=== PATIENT | female | born 1985 | race Caucasian/White ===

== ENCOUNTER → 2016-09-21 | Day surgery (SDC) | payer OTHER ==
[2016-09-16 14:08] VITALS: Ht 172.7 cm; Wt 62.3 kg
--- NOTE | 2016-09-20 14:33 | HISTORY & PHYSICAL EXAMINATION ---
DATE OF ADMISSION: 09/21/2016 HISTORY OF PRESENT ILLNESS: A 30-year-old female presents for initial preoperative evaluation, requesting surgery to painful right foot. Pain is located in the bunion deformity surrounding the first metatarsophalangeal joint. Severity of the condition is graded as a 6-7 on a 10 point scale depending on the activity. She notes intermittent pain and aching. It is not a constant ache however when it is symptomatic is quite inhibitory of exercise routine and working out. She is unsure exactly when this started, it has been going on for several years; however, progressively become much worse to the point where she is requesting surgical intervention due to pain. She denies any associated signs and symptoms. She has tried accommodative padding, accommodative shoes, orthotics, palliative debridements, [id number] medications with little relief. Due to the nature and severity of the discomfort, she is requesting surgical intervention. PAST SURGICAL HISTORY: No previous surgeries. PAST MEDICAL HISTORY: Unremarkable. MEDICATIONS: control pills, Clinoril, spironolactone. ALLERGIES: No known medical allergies. FAMILY HISTORY: Unremarkable. SOCIAL HISTORY: The patient denies smoking, alcohol use, illicit drug use, and STDs. REVIEW OF SYSTEMS: Unremarkable except chief complaint. PHYSICAL EXAMINATION: CONSTITUTIONAL: The patient appears well-developed and nourished with good attention to body grooming and habitus. HEAD AND FACE: Head is normocephalic and atraumatic without any gross head, face, or neck masses. EYES: Conjunctival and pupillary reaction to light and accommodation are normal. EARS, NOSE, MOUTH, AND THROAT: Unremarkable. NECK: Neck is supple. Trachea is midline without any adenopathy or crepitance palpable. CARDIOVASCULAR EXAMINATION: Normal S1, S2 without murmur, gallops, rubs, or clicks noted. Cardiovascular exam is normal. RESPIRATORY: Chest is symmetric. No scars are visible. No port or pacemaker. LUNGS: Clear to auscultation bilaterally. GASTROINTESTINAL EXAMINATION: Abdominal organs, bladder, and kidneys show no abnormalities, masses, tenderness, or rigidity. LYMPHATIC EXAMINATION: No popliteal, inguinal, or supraclavicular lymphadenopathy noted. LOWER EXTREMITY: DP palpable, PT palpable. Digital hair is present. DERMATOLOGIC: Right second intermetatarsal space shows a tattoo. Inspection interphalangeal joint shows redness bursal projection over bony prominence and callus formation. NEUROLOGICAL: Lower extremity exam touch pinprick sensations are normal. Epicritic sensation over the dorsal medial cutaneous nerve diminished bilaterally. Deep tendon reflexes normal. MUSCULOSKELETAL: Muscle tone is normal. Muscle strength 5/5 all groups tested. First metatarsophalangeal joint shows evidence of an enlarged dorsomedial eminence bilaterally and track range of motion bilaterally, proximal interphalangeal contractures noted 2 through 5 bilaterally. IMPRESSION: 1. Hallux deformity bilaterally. 2. Hammertoes 2 through 5 bilaterally. 3. 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 PLAN: I discussed congenital mechanical etiology of the patient's deformity. Bunion deformity can produce a visible bump which reflect changes of the joint. Conservative treatment consists of extra depth shoes, accommodative padding, palliative debridement, steroid injection, nonsteroidals, orthotics without progression of the deformity, nonsteroidals, orthotics without gross deformity. Surgical procedures to be performed: Modified Mesa distal plantar flexion metatarsal osteotomy, possible Arnaud right. This will be performed under general anesthesia as an outpatient at surgery center. Procedure, risks and complications were fully reviewed with the patient. Consent form, foot diagram and illustration reviewed in all their entirety. All the patient's questions were answered. Complications were discussed in detail with the patient including pain, infection, swelling that may or may not be excessive, pins and needles feeling, numbness, metatarsalgia, excessive bleeding, delay or nonhealing of bone, delay or nonhealing of skin, enlarged scar, failure of the procedure, recurrence or worsening condition which may or may not require further surgery, adverse reaction to anesthesia, allergic reaction to suture or other implant material, loss of toe, foot, or leg, flail toe, stiff toe, short toe, elevated toe, transfer lesion or callus, peripheral neurovascular complications such as phlebitis, damage to nerves or vascular structures, significant chronic pain, chronic nerve pain or damage, and general medical complications. The patient will be required to be in a surgery shoe for a minimum of 8 weeks and not return to dress shoe for 10-12 weeks depending on postop edema. The patient is aware this is an elective type procedure and I recommend a second opinion. The patient stated she understood. Consent form was signed with a copy of the foot diagram and illustration given to the patient. Verbal and written postop instructions were given. The patient will be required to be in a surgery shoe for a minimum of 8 weeks and not return to dress shoe for 10-12 weeks depending on postop edema. The patient will return to the office for postop check or sooner if medically necessary. Instructed to keep dressing clean, dry, and intact until seen at the office.
[~2016-09-21] VITALS: Ht 172.7 cm; Wt 62.3 kg
[~2016-09-21] MED LIST: ATROPINE SULFATE 0.1 MG/ML 5ML SYR IV PRN; BCPILLS PO; BUPIVACAINE 0.5 % 5 MG/1 ML MPF 30ML VIAL ONE; CEFAZOLIN 1000MG/55 ML D5W IV SCH; CLN200 PO; DEXAMETHASONE SOD INJ 4 MG/ML VIAL ONE; EpHEDrine SULFATE INJ 50 MG/ML AMP IV PRN; FENTANYL CITRATE INJ 50 MCG/1 ML 2 ML VIAL IV PRN; FENTANYL CITRATE INJ 50 MCG/1 ML 2 ML VIAL ONE; FLUMAZENIL 0.1 MG/1 ML 10 ML VIAL IV PRN; HYDROmorphone INJ 2 MG/ML SYR/VIAL IV PRN; LABETALOL HCL IV 5 MG/ML 20ML IV PRN; LACTATED RINGER'S 1000ML 1,000 ML IV SCH; LIDOCAINE HCL 1% MPF 2 ML VIAL ONE; LIDOCAINE HCL 2% 2 ML VIAL (20MG/ML) ONE; MEPERIDINE HCL 25 MG/ML CARP IV PRN; MIDAZOLAM HCL 1 MG/ML 2ML VIAL ONE; NALOXONE HCL 0.4 MG/1 ML VIAL/CARP IV PRN; ONDANSETRON INJ 2 MG/ML 2 ML VIAL IV PRN; ONDANSETRON INJ 2 MG/ML 2 ML VIAL ONE; PHENYLEPHRINE 100MCG/ML 5ML SYR IV PRN; PROPOFOL IV EMULSION 10 MG/ML 20 ML VIAL IV ONE; ROPIVACAINE 0.5% 5 MG/ML 30 ML VIAL ONE; SODIUM CHLORIDE 0.9% 1000ML 1,000 ML IV SCH; SPIR100T PO
--- NOTE | 2016-09-21 06:30 | History & Physical Bridge - SC ---
H&P Re-Evaluation Bridge Note: I have examined the patient, reviewed the History & Physical and in the interval since the performance of the History & Physical I have noted the following changes of clinical significance: No changes noted
--- NOTE | 2016-09-21 06:30 | Discharge Instructions-SurgCtr ---
Discharge Instructions Visit Reason for Visit: Right Bunion Discharge Discharge Diagnosis / Problem: same as diagnosis Discharge Goals Goal(s): Decrease discomfort Activity Recommendations Activity Limitations: as noted below Medications: * Resume previous medications unless instructed by your surgeon. * Take your medications as prescribed. Call our office ([phone]) at any time, if you experience severe pain that does not subside shortly after taking your pain medication. Activity: * Do not put any standing weight on your operated foot/ankle. Use the crutches or walker as instructed. Special Care: * Keep your bandage clean and dry. Do not remove your bandage unless otherwise instructed. A small amount of blood may appear on the bandage over the surgical site. Call our office ([phone]) if you bandage becomes blood-soaked or wet. * Elevate your operated foot/ankle on pillows, above the level of your heart, as often as possible during the first 2-3 days following surgery. Keep your knee flexed slightly with a pillow under your knee when you elevate your foot/ankle. * Apply a ice bag to your foot/ankle over the operative site for 20-30 minutes out of each hour while you are awake. Do not allow the ice bag to directly contact bare skin. * Avoid bumping or handling any pins visible in your toes. If any pin feels or appears loose, call the office ([phone]). * Take your oral temperature in the morning and at bedtime. Call our office ([phone]) if your temperature rises above 101 degrees Fahrenheit. Call your surgeon's office at ([phone]) for any problems or concerns such as excessive bleeding and/or pain unrelieved by your prescribed pain medications. If you have any questions, please do not hesitate to ask them. Avoid all tobacco products. If you need help to stop smoking, call [place]'s FREE QUITLINE at . This is a free call. Follow-up: Follow-up with Dr. Logan Anesthesia . Post Anesthesia Instructions: If you have had General Anesthesia or IV Sedation: * Do not drive today. * Resume driving when surgeon permits. * Do not make important decisions or sign legal documents today. * Call surgeon for: 1. Temperature elevations greater than 101 degrees F. 2. Uncontrollable pain. 3. Excessive bleeding. 4. Persistent nausea and vomiting. 5. Medication intolerance (nausea, vomiting or rash). * For nausea and vomiting use only clear liquids such as: tea, soda, bouillon until nausea subsides, then gradually increase diet as tolerated. * If you have any concerns or questions, call your surgeon's office. If physician is unavailable and it is an emergency, call 911 or go to the nearest emergency room. . Diet Recommendations Home Diet: resume previous diet Pending Studies Studies pending at discharge: no Medical Emergencies . Who to Call and When: Medical Emergencies: If at any time you feel your situation is an emergency, please call 911 immediately. . Non-Emergent Contact Non-Emergency issues call your: Primary Care Provider . . "Provider Documentation" section prepared by Mojgan Lazo.
[2016-09-21 11:05] VITALS: TEMP 36.9
--- NOTE | 2016-09-21 11:15 | OPERATIVE REPORT ---
DATE OF OPERATION: 09/21/2016 SURGEON: Dr. Logan. PREOPERATIVE DIAGNOSES: 1. Hallux abductovalgus right. 2. Neuritis dorsal medial cutaneous nerve bilaterally. 3. Pain. POSTOPERATIVE DIAGNOSES: Same. PROCEDURES: 1. Modified Mesa distal plantar flexion metatarsal osteotomy, right. 2. Right first tenotomy extensor hallucis brevis tendon. ANESTHESIA: General with popliteal block by anesthesia. HEMOSTASIS: Pneumatic ankle tourniquet inflated to 250 mmHg for a total tourniquet time of 57 minutes. ESTIMATED BLOOD LOSS: Minimal. MATERIALS: 2-0, 3-0 Vicryl, 4-0 nylon, 5-0 PDS, screws x2, 2.5 from [employer], 16 mm and 16 mm, 0.045 K-wire and Ignite Power Mix by [employer]. FINDINGS: Cartilage was still intact over the first metatarsal head. INJECTABLES: None. COMPLICATIONS: None. The patient tolerated the procedure and anesthesia well without complications. The patient was transported to recovery room with vital signs stable and neurovascular status intact. PROCEDURE: The patient was brought to the OR and placed on the OR table in a supine position. Upon completion of general anesthesia and popliteal block by the anesthesia department, the right extremity was scrubbed, prepped and draped in the usual aseptic fashion. Attention was directed to the right foot where an incision was made just medial to the tendon extensor hallucis longus. Dissection was carried down to the level of capsular structures. The adductor tendon was freed as well as the sesamoid. It was somewhat still in the interspace and first metatarsal; however, was not bound down and freely moving noted of the first metatarsal head and left intact rather than removing. At this time, an enlarged dorsomedial eminence was removed with care to preserve the medial sagittal groove. The leg was repositioned. A guidewire was placed from dorsal medial to plantar proximal lateral to slightly plantar flex the capital fragment. There was slightly longer dorsal arm than plantar arm. The capital fragment was transposed in a lateral direction. Two guidewires from the [employer] screw set were placed. Two screws 2.5, 16 mm each, were placed across the osteotomy site. Upon removal of one of the guidewires the guidewire was bent and torched the osteotomy site for better fixation, this screw was removed. A 0.045 K-wire was placed intraoperatively buried within the first metatarsal. There was good fixation and then the screw was replaced where it previously sat with good bite noted. There was good stability of the osteotomy site. Ignite Power Mix was placed over the area. The wound was copiously lavaged with normal saline. Closure began of the capsular structures using 3-0 Vicryl in simple interrupted fashion. The subcutaneous tissues were closed in a box stitch technique using 3-0 Vicryl and skin margins were closed in subcuticularly using 5-0 PDS and interspersed with 4-0 nylon. Pneumatic ankle tourniquet was released with normal pneumatic barros to digits 1 through 5. Dry sterile compressive dressing consisting of Adaptic soaked in Betadine, 4 x 4's, Jim and an Kamron was applied. The patient will be ambulatory, nonweightbearing, in an IPOS shoe. I attest to the content of the Intraoperative Record and any orders documented therein. Any exceptio ns are noted below.
[2016-09-21 11:27] VITALS: BP 116/77; O2SAT 100
--- NOTE | 2016-09-21 11:29 | Anesthesia Progress Nt - [facility] ---
Anesthesia Post Op Note Date & Time Sep 21, 2016 at 11:29 Vital Signs Pain Intensity: 0 Vital Signs Past 12 Hours Date Time Temp Pulse Resp B/P Pulse Ox O2 Delivery O2 Flow Rate FiO2 09/21/16 11:05 36.9 61 16 118/78 100 Room Air 09/21/16 10:45 64 14 111/82 99 Room Air 09/21/16 10:40 65 15 118/82 99 Room Air 09/21/16 10:39 37.0 09/21/16 10:38 118/82 09/21/16 10:34 70 16 96 09/21/16 10:34 69 20 127/90 96 09/21/16 10:29 82 40 125/82 100 09/21/16 10:29 81 40 09/21/16 10:23 112/78 09/21/16 10:19 83 8 100 09/21/16 10:19 74 14 100 09/21/16 10:18 124/80 09/21/16 10:14 101 16 09/21/16 10:14 101 16 100 09/21/16 10:11 36.6 93 12 124/74 99 Diffusion Mask 6 09/21/16 08:41 73 21 100 09/21/16 08:41 73 21 09/21/16 08:38 110/77 09/21/16 08:36 70 24 100 09/21/16 08:36 70 24 09/21/16 08:33 108/75 09/21/16 08:31 69 20 100 09/21/16 08:31 70 20 09/21/16 08:28 112/77 09/21/16 08:26 87 17 116/87 100 09/21/16 08:26 84 13 116/87 100 Nasal Cannula 3 09/21/16 08:26 86 17 09/21/16 08:21 63 100 09/21/16 08:21 63 09/21/16 08:16 69 09/21/16 08:16 69 100 09/21/16 08:11 65 100 09/21/16 08:11 65 09/21/16 07:42 36.7 82 16 125/83 98 Room Air Notes Mental Status: alert / awake / arousable, participated in evaluation Pt Amnestic to Procedure: Yes Nausea / Vomiting: adequately controlled Pain: adequately controlled Airway Patency, RR, SpO2: stable & adequate BP & HR: stable & adequate Hydration State: stable & adequate Anesthetic Complications: no major complications apparent
--- NOTE | 2016-09-21 15:11 | DIAGNOSTIC IMAGING REPORT ---
INTRAOPERATIVE FLUOROSCOPIC IMAGES OF THE RIGHT FOOT CLINICAL HISTORY: Osteotomy. Right foot modified Mesa. COMPARISON STUDY: Right foot radiographs August 12, 2016. FLUOROSCOPY TIME: 3.5 seconds. FINDINGS: 4 fluoroscopic images demonstrate expected findings following right first metatarsal osteotomy. Hardware fixates the osteotomy site. There is no unexpected radiopaque foreign body. IMPRESSION: Expected findings following right first metatarsal osteotomy. Electronically signed by: Raul Turner M.D. 09/21/2016 3:09 PM Dictated Date/Time: 09/21/2016 3:08 PM
--- NOTE | 2016-09-21 15:12 | DIAGNOSTIC IMAGING REPORT ---
RIGHT FOOT RADIOGRAPHS CLINICAL HISTORY: Postoperative evaluation COMPARISON STUDY: Right foot radiographs August 22, 2016. FINDINGS: These images demonstrate a right first metatarsal osteotomy with screw and pin fixation. The hardware is intact. There are no unexpected radiopaque foreign bodies. IMPRESSION: Expected findings following right first metatarsal osteotomy. Electronically signed by: Raul Turner M.D. 09/21/2016 3:10 PM Dictated Date/Time: 09/21/2016 3:09 PM
== END | disposition home or self-care (01) ==
LOC: X.SURG 07:33
PROVIDERS: ATTEND Podiatrist Foot & Ankle Surgery
DX: M20.11 Hallux valgus (acquired), right foot (principal); G57.93 Unspecified mononeuropathy of bilateral lower limbs; Z98.890 Other specified postprocedural states; E28.2 Polycystic ovarian syndrome; K58.9 Irritable bowel syndrome, unspecified; Z80.1 Family history of malignant neoplasm of trachea, bronchus and lung; Z82.49 Family history of ischemic heart disease and other diseases of the circulatory system

== ENCOUNTER → 2016-12-07 | Outpatient (CLI) | payer OTHER ==
[~2016-12-07] MED LIST changes: -ATROPINE SULFATE 0.1 MG/ML 5ML SYR IV PRN; -BUPIVACAINE 0.5 % 5 MG/1 ML MPF 30ML VIAL ONE; -CEFAZOLIN 1000MG/55 ML D5W IV SCH; -CLN200 PO; -DEXAMETHASONE SOD INJ 4 MG/ML VIAL ONE; -EpHEDrine SULFATE INJ 50 MG/ML AMP IV PRN; -FENTANYL CITRATE INJ 50 MCG/1 ML 2 ML VIAL IV PRN; -FENTANYL CITRATE INJ 50 MCG/1 ML 2 ML VIAL ONE; -FLUMAZENIL 0.1 MG/1 ML 10 ML VIAL IV PRN; -HYDROmorphone INJ 2 MG/ML SYR/VIAL IV PRN; -LABETALOL HCL IV 5 MG/ML 20ML IV PRN; -LACTATED RINGER'S 1000ML 1,000 ML IV SCH; -LIDOCAINE HCL 1% MPF 2 ML VIAL ONE; -LIDOCAINE HCL 2% 2 ML VIAL (20MG/ML) ONE; -MEPERIDINE HCL 25 MG/ML CARP IV PRN; -MIDAZOLAM HCL 1 MG/ML 2ML VIAL ONE; -NALOXONE HCL 0.4 MG/1 ML VIAL/CARP IV PRN; -ONDANSETRON INJ 2 MG/ML 2 ML VIAL IV PRN; -ONDANSETRON INJ 2 MG/ML 2 ML VIAL ONE; -PHENYLEPHRINE 100MCG/ML 5ML SYR IV PRN; -PROPOFOL IV EMULSION 10 MG/ML 20 ML VIAL IV ONE; -ROPIVACAINE 0.5% 5 MG/ML 30 ML VIAL ONE; -SODIUM CHLORIDE 0.9% 1000ML 1,000 ML IV SCH
--- NOTE | 2016-12-07 18:47 | DIAGNOSTIC IMAGING REPORT ---
CT OF THE RIGHT FOOT WITHOUT CONTRAST CT DOSE: 188.74 mGy.cm CLINICAL HISTORY: Right foot pain. Evaluate for surgical aftercare. TECHNIQUE: Images of the right foot were obtained without IV contrast. Sagittal and coronal reconstructions were viewed. COMPARISON STUDY: Right foot radiographs August 12, 2016 and September 21, 2016. FINDINGS: The tarsometatarsal joints are intact. There are findings consistent with a right first metatarsal osteotomy which is fixated with a pin and 2 screws. Osseous union is incomplete at this time. There is minimal bony bridging. Alignment is near anatomic. The hardware is intact. There are no unexpected radiopaque foreign bodies. The soft tissue structures of the right foot are suboptimally assessed by CT. There is mild infiltration/edema within the operative bed. There is no drainable fluid collection. Mild osteopenia within the visualized skeletal structures may reflect disuse osteopenia. IMPRESSION: Status post right first metatarsal osteotomy. Hardware intact. Incomplete osseous union with minimal bony bridging. Near anatomic alignment. Electronically signed by: Raul Turner M.D. 12/07/2016 6:45 PM Dictated Date/Time: 12/07/2016 4:32 PM
--- NOTE | 2016-12-08 07:34 | CODING QUERY NO DIAGNOSIS ---
TREATMENT RENDERED WITHOUT A DIAGNOSIS To promote full compliance with coding requirements relating to patient care, physician participation is requested in all cases of equipment records supervisor uncertainty. Please assist us with providing a diagnosis/symptom for the test(s) below: A diagnosis/symptom was not documented on your Order. A valid diagnosis/symptom is required to bill all insurances. Please remember that we are unable to code a diagnosis of rule out, probable, possible, questionable, or suspected. Tests that require a diagnosis: DOS: 12/07/16 * RT LOWER EXT CT W/O CONTRAST DIAGNOSIS: Provider Signature: Date: Thank you Mojgan White [employer] Once completed, please kindly fax back to [phone] For questions please call [phone]
== END | disposition home or self-care (01) ==
LOC: C.CTS 16:10
PROVIDERS: ATTEND Podiatrist Foot & Ankle Surgery
DX: Z48.89 Encounter for other specified surgical aftercare (principal); M79.671 Pain in right foot

== ENCOUNTER → 2017-05-17 | Outpatient (CLI) | payer OTHER ==
--- NOTE | 2017-05-17 10:57 | DIAGNOSTIC IMAGING REPORT ---
CT SCAN OF THE ABDOMEN AND PELVIS WITHOUT CONTRAST CLINICAL HISTORY: RIGHT SIDED PELVIC PAIN W HEMATURIA AND URINARY FREQUENCY COMPARISON STUDY: No previous studies for comparison. TECHNIQUE: CT scan of the abdomen and pelvis was performed from the lung bases to the proximal femurs. Images are reviewed in the axial, sagittal, and coronal planes. IV contrast was not administered for this examination. A dose lowering technique was utilized adhering to the principles of ALARA. CT DOSE: 377.72 mGycm FINDINGS: Lower chest: The heart is normal in size and configuration, without pericardial effusion. The lung bases and pleural spaces are clear. Liver: The unenhanced liver is normal in size, contour, and attenuation. There is no intrahepatic biliary ductal dilatation. Gallbladder: Unremarkable. Spleen: Normal in size and attenuation. Pancreas: Unremarkable. Adrenal glands: Unremarkable. Kidneys: No renal, ureteral, or bladder calculi are visualized. There is a 1 cm right renal hypodensity likely representing a cyst. Bowel: Evaluation the bowel is significantly limited due to the lack of intravenous and oral contrast. There are no transition zones to indicate bowel obstruction. There are no findings to indicate acute appendicitis or acute diverticulitis. Peritoneum: There is no intraperitoneal free air or abdominal ascites. There is soft tissue fullness posterior to the stomach. This is difficult to evaluate given the noncontrast nature the study. Given the age of the patient and lack of left-sided symptomatology, this likely represents a bulbous pancreas. Vasculature: The abdominal aorta is normal in course and caliber. Adenopathy: None. Pelvic viscera: The bladder, and pelvic viscera are unremarkable. Skeletal structures: There are a few scattered bone islands. IMPRESSION: 1. Study limited given the lack of intravenous and oral contrast 2. No renal, ureteral, or bladder calculi identified 3. No evidence of bowel obstruction. No evidence of free air 4. No evidence of acute appendicitis. No evidence of acute diverticulitis. 5. Soft tissue structure located posterior to the stomach. Given the age of the patient and lack of referrable symptoms this likely represents a bulbous pancreas. If further evaluation is desired, this study could be repeated following intravenous and oral contrast. Electronically signed by: Derrick Claudio M.D. 05/17/2017 10:56 AM Dictated Date/Time: 05/17/2017 10:49 AM
== END | disposition home or self-care (01) ==
LOC: C.CTS 07:29
PROVIDERS: ATTEND Physician Assistant
DX: R10.2 Pelvic and perineal pain (principal); R31.9 Hematuria, unspecified; R35.0 Frequency of micturition

== ENCOUNTER → 2017-05-29 | Outpatient (CLI) | payer OTHER ==
[~2017-05-29] MED LIST changes: +OPTIRAY 320 IV PRN
--- NOTE | 2017-05-29 07:31 | DIAGNOSTIC IMAGING REPORT ---
ABD/PELVIS IV AND ORAL CONT HISTORY: 31 years-old Female PELVIC PAIN acute pelvic pain. Patient complains of right lower quadrant abdominal pain for one month. COMPARISON: CT abdomen and pelvis 05/17/2017 TECHNIQUE: Multiple axial CT images of the abdomen and pelvis were obtained following the intravenous administration of 92 mL Optiray 320. Oral contrast was also used. A dose lowering technique was used consistent with the principals of JAKOB. FINDINGS: Mild dependent bibasilar atelectasis is noted. No pneumoperitoneum identified. Imaged inferior cardiac chambers are unremarkable. Liver, spleen and pancreas are unremarkable. The previously mentioned soft tissue structure posterior to the stomach appears to reflect normal pancreatic tail. No definite soft tissue mass is seen within this distribution. Gallbladder and adrenal glands are unremarkable. 10 mm cyst of the inferior pole right kidney is noted. No renal calculi or hydronephrosis. Urinary bladder is mostly collapsed with mild circumferential wall thickening. Uterus and adnexa are unremarkable. The abdominal aorta is normal in both course and caliber. No bulky adenopathy identified. There is no bowel obstruction. Moderate stool burden is noted. Air-filled appendix is seen on image 380 of series 3 and appears noninflamed and nondilated. The tip is not well seen secondary to contrast not yet reaching the cecum. The soft tissues are unremarkable. The bones appear intact. There is mild convex right curvature of the lumbar spine of less than 10 degrees. IMPRESSION: 1. No acute intra-abdominal or intrapelvic abnormality identified. No evidence of acute appendicitis or bowel obstruction. 2. Mild circumferential wall thickening of the bladder is likely secondary to partial distention. Correlate with urinalysis. No renal calculi or hydronephrosis. 3. Moderate stool burden. 4. No focal soft tissue abnormality is identified within the left upper quadrant to correlate with the findings described on prior study. The above report was generated using voice recognition software. It may contain grammatical, syntax or spelling errors. Electronically signed by: Jun Jeffries M.D. 05/29/2017 7:30 AM Dictated Date/Time: 05/29/2017 7:21 AM
== END | disposition home or self-care (01) ==
LOC: C.CTS 06:46
PROVIDERS: ATTEND Internal Medicine
DX: R10.2 Pelvic and perineal pain (principal); R19.5 Other fecal abnormalities